=== PATIENT | female | born 1990 | race Caucasian/White ===

== ENCOUNTER 2022-12-06 08:23 | Outpatient (CLI) | payer OTHER | END 2022-12-06 08:30 | disposition home or self-care (01) | LOC: SONOGRAMA 08:23 | PROVIDERS: ATTEND Internal Medicine Gastroenterology | DX: K80.20 Calculus of gallbladder without cholecystitis without obstruction (principal) ==

== ENCOUNTER 2023-01-29 08:20 | Outpatient (CLI) | payer OTHER | END 2023-01-29 08:30 | disposition home or self-care (01) | LOC: RX STUDY 08:20 | DX: N84.0 Polyp of corpus uteri (principal); D25.0 Submucous leiomyoma of uterus; N97.8 Female infertility of other origin ==